=== PATIENT | female | born 1975 | race Caucasian/White ===

== ENCOUNTER 2017-12-27 22:15 | Emergency (ER) | payer MEDICAID ==
[~2017-12-27] VITALS: Ht 162.6 cm; Wt 110.0 kg
[~2017-12-27 22:15] MED LIST: BUPR150T8 PO; ESCI20TA29 PO; HYDR12.522 PO; TRAZ300T11 PO
[2017-12-27 22:47] LABS: BASOPHILS % (AUTO) 0.3 % (0-1); EOSINOPHILS # (AUTO) 0.5 X10'3 (0-0.9); EOSINOPHILS % (AUTO) 4.5 % (0-6); HEMATOCRIT 34.6 % (35.0-45.0); HEMOGLOBIN 11.6 g/dl (12.0-16.0); LYMPHOCYTES # (AUTO) 2.5 X10'3 (1.1-4.8); LYMPHOCYTES % (AUTO) 23.7 % (21-51); MEAN CORPUSCULAR HEMOGLOBIN 27.7 PG (27.0-31.0); MEAN CORPUSCULAR HGB CONC 33.4 % (33.0-36.5); MEAN CORPUSCULAR VOLUME 82.9 FL (78-98); MONOCYTES # (AUTO) 0.7 X10'3 (0-0.9); MONOCYTES % (AUTO) 6.2 % (2-12); NEUTROPHILS # (AUTO) 6.9 X10'3 (1.8-7.7); NEUTROPHILS % (AUTO) 65.3 % (42-75); PLATELET COUNT 386 X10'3 (140-440); RED BLOOD COUNT 4.18 X10'6 (4.20-5.60); RED CELL DISTRIBUTION WIDTH 15.5 % (11.5-14.5); WHITE BLOOD COUNT 10.6 X10'3 (4.5-11.0)
[2017-12-27 23:01] LABS: ALANINE AMINOTRANSFERASE 32 U/L (12-78); ALBUMIN 3.8 G/DL (3.4-5.0); ALKALINE PHOSPHATASE 74 IU/L (46-116); AMYLASE 49 U/L (25-115); ANION GAP 11 (8-16); ASPARTATE AMINO TRANSFERASE 17 U/L (10-37); BILIRUBIN,TOTAL 0.2 MG/DL (0.1-1.0); BLOOD UREA NITROGEN 11 MG/DL (7-18); BUN/CREATININE RATIO 13.1 (6.6-38.0); CHLORIDE 102 MMOL/L (99-107); CREATININE 0.84 MG/DL (0.40-0.90); GLUCOSE 89 MG/DL (70-104); LIPASE 265 U/L (73-393); POTASSIUM 3.5 MMOL/L (3.5-5.1); SODIUM 141 MMOL/L (135-145); TOTAL CARBON DIOXIDE 27.7 MMOL/L (24-32); TOTAL PROTEIN 7.5 G/DL (6.4-8.2); eGFR 74 ML/MIN
[2017-12-27] MEDS ORDERED: DICY10CA88 PO (23:38)
[2017-12-27] MEDS ORDERED: dicyclomine 10 MG capsule PO ONE (23:40)
[2017-12-27 23:43] VITALS: BP 107/61
[2017-12-27 23:49] LABS: CLARITY,URINE CLEAR (Clear); COLOR,URINE STRAW (Yellow); GLUCOSE, URINE NEGATIVE (Neg); KETONES,URINE NEGATIVE (Neg); LEUKOCYTE ESTERASE ,URINE NEGATIVE (Neg); NITRITES, URINE NEGATIVE (Neg); OCCULT BLOOD,URINE LARGE (Neg); PROTEIN,URINE NEGATIVE (Neg); UROBILINOGEN,URINE 0.2 E.U/dL (0.2-1.0)
[2017-12-27 23:50] LABS: UA COLLECTION TYPE CLN CATCH MIDSTREAM
[2017-12-27 23:58] LABS: BACTERIA,URINE FEW /HPF (Neg); MUCUS STRANDS NONE SEEN /LPF (Neg); RBC,URINE 0-2 /HPF (0-2); SQUAMOUS EPITHELIAL CELL,UR FEW /LPF (FEW); WBC,URINE 0-4 /HPF (0-4)
== END 2017-12-27 23:50 | disposition home or self-care (01) ==
LOC: ER 22:16
DX: B34.9 Viral infection, unspecified (principal); R10.11 Right upper quadrant pain; F17.200 Nicotine dependence, unspecified, uncomplicated; E11.9 Type 2 diabetes mellitus without complications; Z88.5 Allergy status to narcotic agent; Z79.899 Other long term (current) drug therapy
CPT/HCPCS: 36415; 80053; 81001; 82150; 83690; 85025; 85610; 99284

== ENCOUNTER 2018-07-02 19:25 | Emergency (ER) | payer MEDICAID ==
[~2018-07-02] VITALS: Ht 162.6 cm; Wt 130.0 kg
[~2018-07-02 19:25] MED LIST changes: +DICY10CA88 PO
[2018-07-02 20:00] LABS: CLARITY,URINE CLEAR (Clear); COLOR,URINE YELLOW (Yellow); GLUCOSE, URINE NEGATIVE (Neg); KETONES,URINE NEGATIVE (Neg); LEUKOCYTE ESTERASE ,URINE SMALL (Neg); NITRITES, URINE NEGATIVE (Neg); OCCULT BLOOD,URINE SMALL (Neg); PROTEIN,URINE NEGATIVE (Neg); UROBILINOGEN,URINE 0.2 E.U/dL (0.2-1.0)
[2018-07-02 20:02] LABS: URINE HCG NEGATIVE (NEG)
[2018-07-02 20:05] LABS: UA COLLECTION TYPE CLN CATCH MIDSTREAM
[2018-07-02 20:12] LABS: ALANINE AMINOTRANSFERASE 20 U/L (12-78); ALBUMIN 3.3 G/DL (3.4-5.0); ALBUMIN/GLOBULIN RATIO 0.8 (1.1-1.5); ALKALINE PHOSPHATASE 90 IU/L (46-116); ANION GAP 10 (8-16); ASPARTATE AMINO TRANSFERASE 10 U/L (10-37); BILIRUBIN,TOTAL 0.2 MG/DL (0.1-1.0); BLOOD UREA NITROGEN 11 MG/DL (7-18); BUN/CREATININE RATIO 14.1 (6.6-38.0); CALCIUM 8.2 MG/DL (8.5-10.1); CHLORIDE 100 MMOL/L (99-107); CREATININE 0.78 MG/DL (0.40-0.90); GLUCOSE 113 MG/DL (70-104); POTASSIUM 3.7 MMOL/L (3.5-5.1); SODIUM 138 MMOL/L (135-145); TOTAL CARBON DIOXIDE 28.3 MMOL/L (24-32); TOTAL PROTEIN 7.5 G/DL (6.4-8.2); eGFR 80 ML/MIN
[2018-07-02 20:15] LABS: PROTHROMBIN TIME 9.9 SECONDS (9.0-12.0)
[2018-07-02 20:18] LABS: BASOPHILS # (AUTO) 0.1 X10'3 (0-0.2); BASOPHILS % (AUTO) 0.5 % (0-1); EOSINOPHILS # (AUTO) 0.4 X10'3 (0-0.9); EOSINOPHILS % (AUTO) 3.5 % (0-6); HEMATOCRIT 34.9 % (35.0-45.0); HEMOGLOBIN 11.6 g/dl (12.0-16.0); LYMPHOCYTES # (AUTO) 2.3 X10'3 (1.1-4.8); LYMPHOCYTES % (AUTO) 18.5 % (21-51); MEAN CORPUSCULAR HEMOGLOBIN 27.6 PG (27.0-31.0); MEAN CORPUSCULAR HGB CONC 33.3 % (33.0-36.5); MEAN CORPUSCULAR VOLUME 82.7 FL (78-98); MEAN PLATELET VOLUME 7.8 FL (7.4-10.4); MONOCYTES # (AUTO) 0.7 X10'3 (0-0.9); MONOCYTES % (AUTO) 5.6 % (2-12); NEUTROPHILS # (AUTO) 8.9 X10'3 (1.8-7.7); NEUTROPHILS % (AUTO) 71.9 % (42-75); PLATELET COUNT 458 X10'3 (140-440); RED BLOOD COUNT 4.22 X10'6 (4.20-5.60); RED CELL DISTRIBUTION WIDTH 14.1 % (11.5-14.5); WHITE BLOOD COUNT 12.4 X10'3 (4.5-11.0)
[2018-07-02] MEDS ORDERED: iohexol 300mg/ml 100ml inj. ONE (20:33)
[2018-07-02 20:43] LABS: SQUAMOUS EPITHELIAL CELL,UR FEW /LPF (FEW)
[2018-07-02 20:44] LABS: BACTERIA,URINE 1+ /HPF (Neg); RBC,URINE 0-2 /HPF (0-2); WBC,URINE 0-4 /HPF (0-4)
[2018-07-02] MEDS ORDERED: MESSAGE TO NURSING PO NR (20:50)
[2018-07-02] MEDS ORDERED: morphine 4 MG/ML inj SYRINge IV PRN (21:00)
[2018-07-02] MEDS ORDERED: normal saline 1000ML IV soln IVB ONE (21:00)
[2018-07-02] MEDS ORDERED: ondansetron/PF 4mg/2ml inj IV ONE (21:00)
[2018-07-02] MEDS ORDERED: ONDA4TAB9 PO (22:33)
[2018-07-02] MEDS ORDERED: HYDR-4353 PO (22:33)
[2018-07-02 22:43] VITALS: BP 137/88
== END 2018-07-02 22:44 | disposition home or self-care (01) ==
LOC: ER 19:26
DX: N83.291 Other ovarian cyst, right side (principal); R91.1 Solitary pulmonary nodule; R14.0 Abdominal distension (gaseous); R10.32 Left lower quadrant pain; R10.31 Right lower quadrant pain; E11.9 Type 2 diabetes mellitus without complications; Z90.710 Acquired absence of both cervix and uterus; Z98.890 Other specified postprocedural states; Z88.5 Allergy status to narcotic agent; Z79.899 Other long term (current) drug therapy
CPT/HCPCS: 36415; 74177; 80053; 81001; 81025; 82948; 85025; 85610; 87088; 96361; 96374; 96375; 99285; J2270; J2405; Q9967

== ENCOUNTER 2018-08-05 20:57 | Emergency (ER) | payer MEDICAID ==
[~2018-08-05] VITALS: Ht 162.6 cm; Wt 133.5 kg
[2018-08-05 21:07] VITALS: BP 181/99
== END 2018-08-06 01:39 | disposition left against medical advice (07) ==
LOC: ER 20:57
DX: M54.9 Dorsalgia, unspecified (principal); Z53.21 Procedure and treatment not carried out due to patient leaving prior to being seen by health care provider

== ENCOUNTER 2018-08-17 19:28 | Emergency (ER) | payer MEDICAID ==
[~2018-08-17] VITALS: Ht 162.6 cm; Wt 133.0 kg
[2018-08-17 19:50] VITALS: BP 166/82
[2018-08-17] MEDS ORDERED: HYDROcodone/acetaminophen 10/325mg tab PO ONE (22:20)
[2018-08-17] MEDS ORDERED: diazepam 5mg tablet PO ONE (22:20)
[2018-08-17] MEDS ORDERED: ketorolac trometh inj. 60 MG/2 ML VIAL IM ONE (22:20)
== END 2018-08-17 22:46 | disposition home or self-care (01) ==
LOC: ER 19:28
DX: G89.29 Other chronic pain (principal); M54.42 Lumbago with sciatica, left side; E11.9 Type 2 diabetes mellitus without complications; Z90.710 Acquired absence of both cervix and uterus; Z79.899 Other long term (current) drug therapy
CPT/HCPCS: 96372; 99283; J1885

== ENCOUNTER 2018-10-08 12:22 | Emergency (ER) | payer MEDICAID ==
[~2018-10-08] VITALS: Ht 162.6 cm; Wt 132.0 kg
[2018-10-08 12:35] VITALS: BP 174/98
[2018-10-09] MEDS ORDERED: TRAM50TA2 PO (02:56)
== END 2018-10-08 14:37 | disposition left against medical advice (07) ==
LOC: ER 12:22
DX: M54.5 Low back pain (principal); Z53.21 Procedure and treatment not carried out due to patient leaving prior to being seen by health care provider; W07.XXXA Fall from chair, initial encounter; Y93.89 Activity, other specified; Y92.69 Other specified industrial and construction area as the place of occurrence of the external cause; Y99.9 Unspecified external cause status
CPT/HCPCS: 82948; 99281

== ENCOUNTER 2018-10-09 02:29 | Emergency (ER) | payer MEDICAID, OTHER ==
[~2018-10-09] VITALS: Ht 162.6 cm; Wt 126.0 kg
[2018-10-09 02:37] VITALS: BP 153/75
[2018-10-09] MEDS ORDERED: HYDROcodone/acetaminophen 5mg/325mg tablet PO ONE (02:55)
[2018-10-09] MEDS ORDERED: ketorolac trometh inj. 60 MG/2 ML VIAL IM ONE (02:55)
[2018-10-09] MEDS ORDERED: TRAM50TA2 PO (02:56)
== END 2018-10-09 03:31 | disposition home or self-care (01) ==
LOC: ER 02:30
DX: G89.29 Other chronic pain (principal); M54.5 Low back pain; E11.9 Type 2 diabetes mellitus without complications; Z90.710 Acquired absence of both cervix and uterus; Z79.899 Other long term (current) drug therapy
CPT/HCPCS: 96372; 99284; J1885

== ENCOUNTER 2019-03-31 14:34 | Emergency (ER) | payer MEDICAID, OTHER ==
[~2019-03-31] VITALS: Ht 162.6 cm; Wt 120.0 kg
[2019-03-31 15:26] VITALS: BP 128/86
== END 2019-03-31 16:21 | disposition home or self-care (01) ==
LOC: ER 14:35
DX: G89.18 Other acute postprocedural pain (principal); E11.9 Type 2 diabetes mellitus without complications; G89.29 Other chronic pain; F41.9 Anxiety disorder, unspecified; F32.9 Major depressive disorder, single episode, unspecified; F10.99 Alcohol use, unspecified with unspecified alcohol-induced disorder; Z86.2 Personal history of diseases of the blood and blood-forming organs and certain disorders involving the immune mechanism; Z90.710 Acquired absence of both cervix and uterus; Z98.890 Other specified postprocedural states; Z79.899 Other long term (current) drug therapy; Y90.9 Presence of alcohol in blood, level not specified
CPT/HCPCS: 99281

== ENCOUNTER 2019-04-15 16:59 | Emergency (ER) | payer MEDICAID ==
[~2019-04-15] VITALS: Ht 162.6 cm; Wt 120.5 kg
[2019-04-15 17:03] VITALS: BP 175/103
[2019-04-15] MEDS ORDERED: DICL100G15 TOP (17:51)
[2019-04-15] MEDS ORDERED: orphenadrine citrate 60mg/2ml inj. IM ONE (17:55)
[2019-04-15] MEDS ORDERED: ketorolac tromethamine 15mg/ml inj. IM ONE (17:55)
== END 2019-04-15 18:32 | disposition home or self-care (01) ==
LOC: ER 17:00
DX: M25.532 Pain in left wrist (principal); E11.9 Type 2 diabetes mellitus without complications; G89.29 Other chronic pain; F41.9 Anxiety disorder, unspecified; F32.9 Major depressive disorder, single episode, unspecified; Z90.710 Acquired absence of both cervix and uterus; Z98.890 Other specified postprocedural states; Z87.891 Personal history of nicotine dependence; Z88.5 Allergy status to narcotic agent; Z79.899 Other long term (current) drug therapy
CPT/HCPCS: 29125; 73130; 99283

== ENCOUNTER 2020-01-05 22:10 | Emergency (ER) | payer MEDICAID ==
[~2020-01-05] VITALS: Ht 162.6 cm; Wt 100.3 kg
[~2020-01-05 22:10] MED LIST changes: +DICL100G15 TOP
[2020-01-05 22:48] LABS: BASOPHILS # (AUTO) 0.1 X10'3 (0-0.2); BASOPHILS % (AUTO) 0.9 % (0-1); EOSINOPHILS # (AUTO) 0.2 X10'3 (0-0.9); EOSINOPHILS % (AUTO) 1.4 % (0-6); HEMATOCRIT 39.8 % (35.0-45.0); HEMOGLOBIN 13.5 g/dl (12.0-16.0); LYMPHOCYTES # (AUTO) 3.5 X10'3 (1.1-4.8); LYMPHOCYTES % (AUTO) 28.8 % (21-51); MEAN CORPUSCULAR HEMOGLOBIN 30.7 PG (27.0-31.0); MEAN CORPUSCULAR HGB CONC 33.8 g/dL (33.0-36.5); MEAN CORPUSCULAR VOLUME 90.9 FL (78-98); MEAN PLATELET VOLUME 8.7 FL (7.4-10.4); MONOCYTES # (AUTO) 0.7 X10'3 (0-0.9); NEUTROPHILS # (AUTO) 7.5 X10'3 (1.8-7.7); NEUTROPHILS % (AUTO) 62.9 % (42-75); PLATELET COUNT 291 X10'3 (140-440); RED BLOOD COUNT 4.38 X10'6 (4.20-5.60)
[2020-01-05 22:51] LABS: URINE HCG NEGATIVE (NEG)
[2020-01-05 22:55] LABS: CLARITY,URINE SLIGHTLY CLOUDY (Clear); COLOR,URINE YELLOW (Yellow); GLUCOSE, URINE NEGATIVE (Neg); KETONES,URINE TRACE mg/dl (Neg); LEUKOCYTE ESTERASE ,URINE NEGATIVE (Neg); NITRITES, URINE NEGATIVE (Neg); OCCULT BLOOD,URINE NEGATIVE (Neg); PROTEIN,URINE NEGATIVE (Neg)
[2020-01-05 22:59] LABS: ALANINE AMINOTRANSFERASE 12 U/L (12-78); ALBUMIN 3.9 G/DL (3.4-5.0); ALBUMIN/GLOBULIN RATIO 1.1 (1.1-1.5); ALKALINE PHOSPHATASE 51 IU/L (46-116); ANION GAP 9 (8-16); ASPARTATE AMINO TRANSFERASE 9 U/L (10-37); BILIRUBIN,TOTAL 0.3 MG/DL (0.1-1.0); BLOOD UREA NITROGEN 23 MG/DL (7-18); BUN/CREATININE RATIO 27.4 (6.6-38.0); CALCIUM 8.6 MG/DL (8.5-10.1); CHLORIDE 102 MMOL/L (99-107); CREATININE 0.84 MG/DL (0.40-0.90); GLUCOSE 133 MG/DL (70-104); LIPASE 255 U/L (73-393); POTASSIUM 3.4 MMOL/L (3.5-5.1); SODIUM 139 MMOL/L (135-145); TOTAL PROTEIN 7.5 G/DL (6.4-8.2); eGFR 73 ML/MIN
[2020-01-05 23:00] LABS: UA COLLECTION TYPE CLN CATCH MIDSTREAM
[2020-01-05] MEDS ORDERED: morphine 4 MG/ML inj SYRINge IV PRN ×2 (23:00→23:20)
[2020-01-05] MEDS ORDERED: ondansetron/PF 4mg/2ml inj IV ONE ×2 (23:00→23:20)
[2020-01-05] MEDS ORDERED: normal saline 1000ML IV soln IVB ONE ×2 (23:00→23:20)
[2020-01-05] MEDS ORDERED: ketorolac tromethamine 15mg/ml inj. IV ONE ×2 (23:00→23:20)
[2020-01-05] MEDS ORDERED: HYDROcodone/acetaminophen 10/325mg tab PO ONE (23:00)
[2020-01-05 23:02] LABS: BACTERIA,URINE NONE SEEN /HPF (Neg); RBC,URINE 0-2 /HPF (0-2); SQUAMOUS EPITHELIAL CELL,UR MODERATE /LPF (FEW); WBC,URINE 0-4 /HPF (0-4)
[2020-01-05] MEDS ORDERED: HYDR-4353 PO (23:18)
[2020-01-05] MEDS ORDERED: ketorolac trometh. 30mg/ml inj. IM ONE (23:35)
--- NOTE | 2020-01-05 23:45 | NUR ---
PT NOT WANTING AN IV OR IV MEDS OR FLUIDS DR KELLER DISCONTINUED IV MED AND IVF FLUIDS PT WAS MEDICATED FOR PAIN WITH PO MEDS AND AND IIM TORADOL
[2020-01-06 00:19] VITALS: BP 108/56
== END 2020-01-06 00:11 | disposition home or self-care (01) ==
LOC: ER 22:43
DX: R10.31 Right lower quadrant pain (principal); G89.29 Other chronic pain; F41.9 Anxiety disorder, unspecified; F32.9 Major depressive disorder, single episode, unspecified; F17.200 Nicotine dependence, unspecified, uncomplicated; Z86.2 Personal history of diseases of the blood and blood-forming organs and certain disorders involving the immune mechanism; Z90.710 Acquired absence of both cervix and uterus; Z98.890 Other specified postprocedural states; Z72.89 Other problems related to lifestyle; Z90.721 Acquired absence of ovaries, unilateral
CPT/HCPCS: 36415; 80053; 81001; 81025; 83690; 85025; 96372; 99283; J1885

== ENCOUNTER 2020-09-29 08:54 | Emergency (ER) | payer MEDICAID ==
[~2020-09-29] VITALS: Ht 162.6 cm; Wt 105.0 kg
[2020-09-29] MEDS ORDERED: morphine 4 MG/ML inj SYRINge IV ONE (09:40)
[2020-09-29] MEDS ORDERED: ondansetron/PF 4mg/2ml inj IV ONE (09:40)
[2020-09-29] MEDS ORDERED: iohexol 300mg/ml 100ml inj. ONE (09:55)
[2020-09-29] MEDS ORDERED: HYDR-3965 PO (10:57)
[2020-09-29] MEDS ORDERED: ONDA4TAB6 PO (10:57)
[2020-09-29 11:44] VITALS: BP 144/77
== END 2020-09-29 11:47 | disposition home or self-care (01) ==
LOC: ER 08:54
DX: S22.31XA Fracture of one rib, right side, initial encounter for closed fracture (principal); R07.81 Pleurodynia; R06.02 Shortness of breath; R10.11 Right upper quadrant pain; E11.9 Type 2 diabetes mellitus without complications; G89.29 Other chronic pain; F41.9 Anxiety disorder, unspecified; F32.9 Major depressive disorder, single episode, unspecified; Z86.2 Personal history of diseases of the blood and blood-forming organs and certain disorders involving the immune mechanism; Z90.710 Acquired absence of both cervix and uterus; Z98.890 Other specified postprocedural states; Z72.89 Other problems related to lifestyle; Z88.5 Allergy status to narcotic agent; Z79.899 Other long term (current) drug therapy; W19.XXXA Unspecified fall, initial encounter; Y93.89 Activity, other specified; Y92.89 Other specified places as the place of occurrence of the external cause; Y99.8 Other external cause status
CPT/HCPCS: 71260; 74177; 96374; 96375; 99285; J2270; J2405; Q9967

== ENCOUNTER 2022-10-21 20:45 | Emergency (ER) | payer MEDICAID ==
[~2022-10-21] VITALS: Ht 162.6 cm; Wt 109.1 kg
[~2022-10-21 20:45] MED LIST changes: +ONDA4TAB6 PO
[2022-10-21 21:03] LABS: BASOPHILS # (AUTO) 0.1 X10'3 (0-0.2); EOSINOPHILS # (AUTO) 0.2 X10'3 (0-0.9); EOSINOPHILS % (AUTO) 2.5 % (0-6); HEMATOCRIT 42.2 % (35.0-45.0); LYMPHOCYTES % (AUTO) 36.5 % (21-51); MEAN CORPUSCULAR HEMOGLOBIN 30.2 PG (27.0-31.0); MEAN CORPUSCULAR HGB CONC 33.3 g/dL (33.0-36.5); MEAN CORPUSCULAR VOLUME 90.8 FL (78-98); MEAN PLATELET VOLUME 8.2 FL (7.4-10.4); MONOCYTES # (AUTO) 0.6 X10'3 (0-0.9); MONOCYTES % (AUTO) 7.8 % (2-12); NEUTROPHILS # (AUTO) 4.3 X10'3 (1.8-7.7); NEUTROPHILS % (AUTO) 52.2 % (42-75); PLATELET COUNT 292 X10'3 (140-440); RED BLOOD COUNT 4.64 X10'6 (4.20-5.60); RED CELL DISTRIBUTION WIDTH 14.2 % (11.5-14.5); WHITE BLOOD COUNT 8.2 X10'3 (4.5-11.0)
[2022-10-21 21:33] LABS: ALANINE AMINOTRANSFERASE 20 U/L (12-78); ALBUMIN 4.2 G/DL (3.4-5.0); ALKALINE PHOSPHATASE 70 IU/L (46-116); ANION GAP 11 (8-16); ASPARTATE AMINO TRANSFERASE 15 U/L (10-37); BILIRUBIN,TOTAL 0.3 MG/DL (0.1-1.0); BLOOD UREA NITROGEN 13 MG/DL (7-18); BUN/CREATININE RATIO 16.9 (6.6-38.0); CALCIUM 9.5 MG/DL (8.5-10.1); CHLORIDE 102 MMOL/L (99-107); CREATININE 0.77 MG/DL (0.40-0.90); GLUCOSE 126 MG/DL (70-104); POTASSIUM 3.7 MMOL/L (3.5-5.1); SODIUM 140 MMOL/L (135-145); TOTAL CARBON DIOXIDE 27.2 MMOL/L (24-32); TOTAL PROTEIN 8.4 G/DL (6.4-8.2); eGFR 80 ML/MIN
[2022-10-21 21:41] LABS: MAGNESIUM 1.9 MG/DL (1.5-2.4)
[2022-10-21] MEDS ORDERED: LORazepam 2 mg/ml vial IM ONE (22:45)
[2022-10-21 23:38] VITALS: BP 160/99
== END 2022-10-21 23:41 | disposition home or self-care (01) ==
LOC: ER 20:46
DX: F15.10 Other stimulant abuse, uncomplicated (principal); G89.29 Other chronic pain; M54.50 Low back pain, unspecified; Z88.5 Allergy status to narcotic agent; Z90.710 Acquired absence of both cervix and uterus; Z98.890 Other specified postprocedural states
CPT/HCPCS: 36415; 71045; 80053; 83735; 83880; 84484; 85025; 93005; 96372; 99285; J2060

== ENCOUNTER 2023-01-21 11:53 | Inpatient (IN) | payer MEDICAID ==
[~2023-01-21] VITALS: Ht 162.6 cm; Wt 104.5 kg
[2023-01-21 12:17] LABS: BASOPHILS % (AUTO) 0.7 % (0-1); EOSINOPHILS # (AUTO) 0.1 X10'3 (0-0.9); EOSINOPHILS % (AUTO) 2.1 % (0-6); HEMATOCRIT 37.9 % (35.0-45.0); HEMOGLOBIN 12.6 g/dl (12.0-16.0); LYMPHOCYTES # (AUTO) 2.5 X10'3 (1.1-4.8); LYMPHOCYTES % (AUTO) 36.7 % (21-51); MEAN CORPUSCULAR HEMOGLOBIN 29.7 PG (27.0-31.0); MEAN CORPUSCULAR HGB CONC 33.3 g/dL (33.0-36.5); MEAN CORPUSCULAR VOLUME 89.2 FL (78-98); MEAN PLATELET VOLUME 8.1 FL (7.4-10.4); MONOCYTES # (AUTO) 0.4 X10'3 (0-0.9); MONOCYTES % (AUTO) 6.1 % (2-12); NEUTROPHILS # (AUTO) 3.8 X10'3 (1.8-7.7); NEUTROPHILS % (AUTO) 54.4 % (42-75); PLATELET COUNT 332 X10'3 (140-440); RED BLOOD COUNT 4.25 X10'6 (4.20-5.60); RED CELL DISTRIBUTION WIDTH 15.1 % (11.5-14.5); WHITE BLOOD COUNT 6.9 X10'3 (4.5-11.0)
[2023-01-21 12:32] LABS: ALANINE AMINOTRANSFERASE 31 U/L (12-78); ALBUMIN 3.7 G/DL (3.4-5.0); ALBUMIN/GLOBULIN RATIO 1.2 (1.1-1.5); ALKALINE PHOSPHATASE 61 IU/L (46-116); ANION GAP 11 (8-16); ASPARTATE AMINO TRANSFERASE 21 U/L (10-37); BILIRUBIN,TOTAL 0.2 MG/DL (0.1-1.0); BLOOD UREA NITROGEN 11 MG/DL (7-18); BUN/CREATININE RATIO 14.1 (10.0-20.0); CALCIUM 8.9 MG/DL (8.5-10.1); CHLORIDE 102 MMOL/L (99-107); CREATININE 0.78 MG/DL (0.40-0.90); GLUCOSE 113 MG/DL (70-104); POTASSIUM 4.3 MMOL/L (3.5-5.1); SODIUM 140 MMOL/L (135-145); TOTAL CARBON DIOXIDE 26.8 MMOL/L (24-32); TOTAL PROTEIN 6.9 G/DL (6.4-8.2); eGFR 79 ML/MIN
[2023-01-21 12:39] LABS: MAGNESIUM 1.9 MG/DL (1.5-2.4)
[2023-01-21] MEDS ORDERED: metoprolol tartrate 25mg tablet PO ONE (13:00)
[2023-01-21] MEDS ORDERED: aspirin 81mg tab.chew PO ONE (13:00)
[2023-01-21] MEDS ORDERED: potassium Cl 20 mEq SR tablet PO PRN ×2 (13:30)
[2023-01-21] MEDS ORDERED: acetaminophen 325mg tablet PO PRN (13:30)
[2023-01-21] MEDS ORDERED: metoprolol tartrate 1mg/ml inj IV PRN (13:30)
[2023-01-21] MEDS ORDERED: ondansetron/PF 4mg/2ml inj IV PRN (13:30)
[2023-01-21] MEDS ORDERED: potassium Cl 40MEQ/1/2NS 520ml 520 ML IV PRN (13:30)
[2023-01-21] MEDS ORDERED: aminophylline 250mg/10ml inj. IV PRN (13:30)
[2023-01-21] MEDS ORDERED: regadenoson 0.4mg/5ml syringe IV PRN (13:30)
[2023-01-21] MEDS ORDERED: HYDROcodone/acetaminophen 5mg/325mg tablet PO PRN (13:30)
[2023-01-21] MEDS ORDERED: morphine 2 MG/ML inj. syringe IV PRN (13:30)
[2023-01-21] MEDS ORDERED: magnesium 4gm in 100ml NS 100 ML IV PRN (13:30)
[2023-01-21] MEDS ORDERED: nitroGLYCERIN 0.4mg SUBLingual tab SL PRN (13:30)
[2023-01-21] MEDS ORDERED: magnesium Cl slow-release 64mg tablet PO PRN (13:30)
[2023-01-21] MEDS ORDERED: magnesium 2GM in 50ml NS 50 ML IV PRN (13:30)
[2023-01-21] MEDS ORDERED: magnesium hydroxide 30ml (MOM) UD suspension PO PRN (13:30)
[2023-01-21] MEDS ORDERED: hydrALAZINE 20mg/ml inj. IV PRN (13:30)
[2023-01-21] MEDS ORDERED: mag hydrox/Alum hydrox/simeth 30ml oral suspension PO PRN (13:30)
[2023-01-21] MEDS ORDERED: DEXTROSE 15 GM of carb/4 tabs (each vial/BOTTLE has 4 tablets) PO PRN ×2 (13:45)
[2023-01-21] MEDS ORDERED: insulin Lispro (HumaLOG) vial - multi-dose SQ SCH (13:45)
[2023-01-21] MEDS ORDERED: glucagon, human recombinant 1mg kit SUBCUT PRN (13:45)
[2023-01-21] MEDS ORDERED: dextrose 50%-water 50ml dispensing syringe IV PRN ×2 (13:45)
[2023-01-21] MEDS ORDERED: MESSAGE TO PHARMACY PO ONE (13:45)
[2023-01-21] MEDS ORDERED: dicyclomine 10 MG capsule PO PRN (13:55)
[2023-01-21 13:58] LABS: MAGNESIUM 1.9 MG/DL (1.5-2.4); POTASSIUM 4.4 MMOL/L (3.5-5.1)
[2023-01-21 14:43] LABS: CHOL/HDL RATIO 2.7 (0.00-4.99); CHOLESTEROL 150 MG/DL (0-200); HDL CHOLESTEROL 55 MG/DL (35-60); LDL CHOLESTEROL 74 MG/DL (50-100); TRIGLYCERIDES 192 MG/DL (20-135)
[2023-01-21] MEDS: LORazepam 0.5 MG tablet PO PRN ×2 (15:20→21:21)
[2023-01-21] MEDS ORDERED: LISI20TA28 PO (16:07)
[2023-01-21] MEDS ORDERED: FLUT16SP26 (16:07)
[2023-01-21] MEDS ORDERED: PARO20TA6 PO (16:07)
[2023-01-21] MEDS ORDERED: CLON0.1T2 PO (16:07)
[2023-01-21] MEDS ORDERED: LORA10TA7 PO (16:07)
[2023-01-21] MEDS ORDERED: ATOR20TA66 PO (16:07)
[2023-01-21] MEDS ORDERED: DIVA500T9 PO (16:07)
[2023-01-21] MEDS ORDERED: METF-1203 PO (16:07)
[2023-01-21] MEDS ORDERED: ACET-1084 PO (16:09)
[2023-01-21] MEDS ORDERED: MULT-227 PO (16:09)
--- NOTE | 2023-01-21 17:42 | NUR ---
RN gave nurse report to SOLEDAD Jaimes. Pt stable. VS WNL. 20 gauge IV inserted in left wrist. Pt transferred to [address].
--- NOTE | 2023-01-21 17:50 | NUR ---
Pt arrived from ER via wheelchair. Pt alert/oriented x4. Resting comfortably in bed, at bedside.
[2023-01-21 18:00] VITALS: BP 169/94
--- NOTE | 2023-01-21 18:32 | NUR ---
Report given to Sandie. Reviewed patient plan of care, all questions answered.
[2023-01-21 19:00] VITALS: BP 163/92
[2023-01-21] MEDS: K and/or MAG REPLACEMENT MC SCH (20:00)
[2023-01-21] MEDS ORDERED: traZODone 150mg tablet PO SCH (20:00)
[2023-01-21] MEDS ORDERED: insulin glargine (Lantus) pen - multi-dose SQ SCH (21:00)
[2023-01-21] MEDS: docusate sod 100mg capsule PO SCH (21:00)
[2023-01-21] MEDS ORDERED: non-formulary drug (Acetaminophen 1 TAB) PO PRN (22:20)
[2023-01-21 23:00] VITALS: BP 130/90
[2023-01-22] VITALS (11 sets, daily range): BP systolic 119–164; BP diastolic 63–104
--- NOTE | 2023-01-22 02:07 | NUR ---
Pt was admitted to floor on prior shift. Pt appears stable, A/O. No c/o pain. Pt eating food brought in by family. Pt given one dose of Ativan at approx 0930, medications had not been reconciled at that time, psych med not ordered for HS and pt stated her mind was racing. BS has not met protocol this shift. Pt is currently NPO for lexiscan on 01/22. Page sent to MD to reconcile meds, completed. Pt is resting comfortably at this time.
--- NOTE | 2023-01-22 02:21 | NUR ---
I AGREE WITH BULK INTAKE WORKER ASSESSMENTS
[2023-01-22] MEDS: LORazepam 0.5 MG tablet PO PRN (03:57)
--- NOTE | 2023-01-22 06:30 | NUR ---
Patient in room PCU 3015. I have received report from Sandie RN and had the opportunity to ask questions and assume patient care.
[2023-01-22 07:31] LABS: BASOPHILS # (AUTO) 0.1 X10'3 (0-0.2); BASOPHILS % (AUTO) 0.8 % (0-1); EOSINOPHILS # (AUTO) 0.2 X10'3 (0-0.9); EOSINOPHILS % (AUTO) 2.7 % (0-6); HEMATOCRIT 36.1 % (35.0-45.0); HEMOGLOBIN 12.1 g/dl (12.0-16.0); LYMPHOCYTES # (AUTO) 2.5 X10'3 (1.1-4.8); LYMPHOCYTES % (AUTO) 36.4 % (21-51); MEAN CORPUSCULAR HEMOGLOBIN 29.9 PG (27.0-31.0); MEAN CORPUSCULAR HGB CONC 33.6 g/dL (33.0-36.5); MEAN PLATELET VOLUME 8.4 FL (7.4-10.4); MONOCYTES # (AUTO) 0.4 X10'3 (0-0.9); MONOCYTES % (AUTO) 6.1 % (2-12); NEUTROPHILS # (AUTO) 3.7 X10'3 (1.8-7.7); PLATELET COUNT 318 X10'3 (140-440); RED BLOOD COUNT 4.05 X10'6 (4.20-5.60); RED CELL DISTRIBUTION WIDTH 14.8 % (11.5-14.5); WHITE BLOOD COUNT 6.8 X10'3 (4.5-11.0)
[2023-01-22 07:57] LABS: ALANINE AMINOTRANSFERASE 28 U/L (12-78); ALBUMIN 3.3 G/DL (3.4-5.0); ALBUMIN/GLOBULIN RATIO 1.1 (1.1-1.5); ALKALINE PHOSPHATASE 57 IU/L (46-116); ANION GAP 8 (8-16); ASPARTATE AMINO TRANSFERASE 18 U/L (10-37); BILIRUBIN,TOTAL 0.4 MG/DL (0.1-1.0); BLOOD UREA NITROGEN 15 MG/DL (7-18); BUN/CREATININE RATIO 19.5 (10.0-20.0); CALCIUM 8.9 MG/DL (8.5-10.1); CHLORIDE 105 MMOL/L (99-107); CHOLESTEROL 137 MG/DL (0-200); CREATININE 0.77 MG/DL (0.40-0.90); GLUCOSE 105 MG/DL (70-104); HDL CHOLESTEROL 45 MG/DL (35-60); LDL CHOLESTEROL 66 MG/DL (50-100); POTASSIUM 4.1 MMOL/L (3.5-5.1); SODIUM 141 MMOL/L (135-145); TOTAL CARBON DIOXIDE 28.2 MMOL/L (24-32); TOTAL PROTEIN 6.2 G/DL (6.4-8.2); TRIGLYCERIDES 211 MG/DL (20-135); eGFR 80 ML/MIN
[2023-01-22] MEDS ORDERED: loratadine 10mg tablet PO SCH (08:00)
[2023-01-22] MEDS ORDERED: atorvastatin 20mg tablet PO SCH (08:00)
[2023-01-22] MEDS ORDERED: enoxaparin 40mg/0.4ml syringe SUBCUT SCH (08:00)
[2023-01-22] MEDS ORDERED: lisinopril 20mg tablet PO SCH (08:00)
[2023-01-22] MEDS ORDERED: ESCITALOPRAM OXALATE 5 MG TABLET PO SCH (08:00)
[2023-01-22] MEDS ORDERED: PARoxetine 20mg tablet PO SCH (08:00)
[2023-01-22] MEDS ORDERED: HYDROchlorothiazide 25mg tablet PO ONE (08:00)
[2023-01-22] MEDS ORDERED: divalproex sod 250mg ER (24-hour) tablet PO SCH (08:00)
[2023-01-22] MEDS ORDERED: metoprolol succinate 25mg (24-HOUR) SR. Tablet PO SCH (08:00)
[2023-01-22] MEDS ORDERED: multivitamins, therapeutics tablet PO SCH (08:00)
[2023-01-22] MEDS ORDERED: buPROPion SR 150mg tablet PO SCH (08:00)
[2023-01-22] MEDS: docusate sod 100mg capsule PO SCH (10:12)
[2023-01-22] MEDS: K and/or MAG REPLACEMENT MC SCH (10:15)
--- NOTE | 2023-01-22 10:35 | NUR ---
PAGER ID: [phone] MESSAGE: [id number]- Carel Silvia: Pt refused scheduled lexapro and buspar, stated she doesn't take them anymore. Can we d/c? Bryan Humphries [phone]
[2023-01-22] MEDS ORDERED: METO-395 PO (10:46)
[2023-01-22] MEDS ORDERED: ASPI81TA52 PO (10:46)
--- NOTE | 2023-01-22 13:35 | NUR ---
Mrs. Curiel D/c'd Home Approx 1335, Pt. D/c'd in a stable condition, All Vital Signs stable at that time, Pt.s belongings sent with her along with D/c instructions Per MD orders. Pt. Educated on New Medications and verbalized understanding, New Medication Orders sent to [facility] off [address] Per Pt. Request. Pt. Also Educated on the importance of abstaining from drug use. Educational Materials sent with Pt. Patient instructed to follow up x 1 week with PCP. Pt. Assisted down to Lobby vis W/C By this COAL HAULER OPERATOR, PT. Present, this COAL HAULER OPERATOR assisted Pt. Into vehicle Pt. left in stable condition.
[2023-01-22] MEDS ORDERED: cloNIDine 0.1 mg tablet PO SCH (21:00)
== END 2023-01-22 13:28 | disposition home or self-care (01) | DRG 198 ==
LOC: ER 11:54 → ED HOLD 13:35 → PCU 3S 17:40
PROVIDERS: ADMIT Internal Medicine; ATTEND Internal Medicine
PROC: 4A02XM4 Measurement of Cardiac Total Activity, External Approach (ICD-10-PCS; principal; 2023-01-22)
PROC: 3E073KZ Introduction of Other Diagnostic Substance into Coronary Artery, Percutaneous Approach (ICD-10-PCS; 2023-01-22)
DX: R07.89 Other chest pain (principal); I24.8 Other forms of acute ischemic heart disease; E11.9 Type 2 diabetes mellitus without complications; E66.01 Morbid (severe) obesity due to excess calories; F32.A Depression, unspecified; F41.9 Anxiety disorder, unspecified; G89.29 Other chronic pain; M54.9 Dorsalgia, unspecified; M54.6 Pain in thoracic spine; E78.5 Hyperlipidemia, unspecified; F15.10 Other stimulant abuse, uncomplicated; F10.20 Alcohol dependence, uncomplicated; F19.20 Other psychoactive substance dependence, uncomplicated; F17.210 Nicotine dependence, cigarettes, uncomplicated; I10 Essential (primary) hypertension; I16.0 Hypertensive urgency; Z82.49 Family history of ischemic heart disease and other diseases of the circulatory system; Z90.711 Acquired absence of uterus with remaining cervical stump; Z90.721 Acquired absence of ovaries, unilateral; Z98.891 History of uterine scar from previous surgery; Z88.5 Allergy status to narcotic agent; Z68.39 Body mass index [BMI] 39.0-39.9, adult; Z79.899 Other long term (current) drug therapy
CPT/HCPCS: 36415; 71045; 78452; 80053; 80061; 82948; 83036; 83735; 83880; 84132; 84484; 85025; 87081; 93017; 93306; 99285; A9500; G0378; J1650; J1815; J2785

== ENCOUNTER 2023-04-01 21:36 | Emergency (ER) | payer MEDICAID ==
[~2023-04-01] VITALS: Ht 162.6 cm; Wt 103.6 kg
[~2023-04-01 21:36] MED LIST changes: +ACET-1084 PO; +ASPI81TA52 PO; +ATOR20TA66 PO; -BUPR150T8 PO; -DICL100G15 TOP; -DICY10CA88 PO; +DIVA500T9 PO; -ESCI20TA29 PO; +FLUT16SP26; -HYDR12.522 PO; +LISI20TA28 PO; +LORA10TA7 PO; +METF-1203 PO; +METO-395 PO; +MULT-227 PO; -ONDA4TAB6 PO; +PARO20TA6 PO; -TRAZ300T11 PO
[2023-04-01 21:51] VITALS: TEMP 98.6
[2023-04-01 22:38] LABS: URINE HCG NEGATIVE (NEG)
[2023-04-01 22:39] LABS: BILIRUBIN,URINE NEGATIVE (Neg); CLARITY,URINE SLIGHTLY CLOUDY (Clear); COLOR,URINE YELLOW (Yellow); GLUCOSE, URINE NEGATIVE (Neg); KETONES,URINE TRACE mg/dl (Neg); LEUKOCYTE ESTERASE ,URINE NEGATIVE (Neg); NITRITES, URINE NEGATIVE (Neg); OCCULT BLOOD,URINE NEGATIVE (Neg); PROTEIN,URINE TRACE mg/dl (Neg); UROBILINOGEN,URINE 0.2 E.U/dL (0.2-1.0)
[2023-04-01 22:44] LABS: UA COLLECTION TYPE CLN CATCH MIDSTREAM
[2023-04-01 22:48] LABS: MUCUS STRANDS FEW /LPF (Neg); SQUAMOUS EPITHELIAL CELL,UR FEW /LPF (FEW)
[2023-04-01 22:49] LABS: HYALINE CASTS 0-3 /LPF (NEGATIVE); WBC,URINE 0-4 /HPF (0-4)
[2023-04-01 22:50] LABS: BACTERIA,URINE FEW /HPF (Neg); RBC,URINE 0-2 /HPF (0-2)
[2023-04-01 23:44] LABS: ALANINE AMINOTRANSFERASE 35 U/L (12-78); ALBUMIN 3.8 G/DL (3.4-5.0); ALKALINE PHOSPHATASE 68 IU/L (46-116); ANION GAP 11 (8-16); ASPARTATE AMINO TRANSFERASE 26 U/L (10-37); BILIRUBIN,TOTAL 0.2 MG/DL (0.1-1.0); BLOOD UREA NITROGEN 17 MG/DL (7-18); BUN/CREATININE RATIO 19.5 (10.0-20.0); CALCIUM 8.7 MG/DL (8.5-10.1); CHLORIDE 105 MMOL/L (99-107); CREATININE 0.87 MG/DL (0.40-0.90); GLUCOSE 95 MG/DL (70-104); LIPASE 184 U/L (73-393); SODIUM 142 MMOL/L (135-145); TOTAL CARBON DIOXIDE 26.1 MMOL/L (24-32); TOTAL PROTEIN 7.8 G/DL (6.4-8.2); eCRCL 68 ML/MIN; eGFR 69 ML/MIN
[2023-04-01 23:47] LABS: BASOPHILS # (AUTO) 0.1 X10'3 (0-0.2); BASOPHILS % (AUTO) 0.9 % (0-1); EOSINOPHILS # (AUTO) 0.2 X10'3 (0-0.9); EOSINOPHILS % (AUTO) 3.1 % (0-6); HEMATOCRIT 42.7 % (35.0-45.0); HEMOGLOBIN 13.9 g/dl (12.0-16.0); LYMPHOCYTES # (AUTO) 2.4 X10'3 (1.1-4.8); LYMPHOCYTES % (AUTO) 29.4 % (21-51); MEAN CORPUSCULAR HEMOGLOBIN 29.8 PG (27.0-31.0); MEAN CORPUSCULAR HGB CONC 32.7 g/dL (33.0-36.5); MEAN CORPUSCULAR VOLUME 91.2 FL (78-98); MEAN PLATELET VOLUME 8.6 FL (7.4-10.4); MONOCYTES # (AUTO) 0.7 X10'3 (0-0.9); NEUTROPHILS # (AUTO) 4.7 X10'3 (1.8-7.7); NEUTROPHILS % (AUTO) 57.6 % (42-75); PLATELET COUNT 295 X10'3 (140-440); RED BLOOD COUNT 4.68 X10'6 (4.20-5.60); RED CELL DISTRIBUTION WIDTH 14.3 % (11.5-14.5); WHITE BLOOD COUNT 8.1 X10'3 (4.5-11.0)
[2023-04-02] MEDS ORDERED: thiamine 100mg/ml 2ml inj. IV ONE
[2023-04-02] MEDS ORDERED: ondansetron/PF 4mg/2ml inj IV ONE
[2023-04-02] MEDS ORDERED: normal saline 1000ML IV soln IVB ONE
[2023-04-02] MEDS ORDERED: iohexol 300mg/ml 100ml inj. ONE (01:00)
[2023-04-02 01:48] VITALS: BP 135/90; PULSE 66; RESP 16; O2SAT 99
== END 2023-04-02 04:21 | disposition left against medical advice (07) ==
LOC: ER 21:36
DX: R10.84 Generalized abdominal pain (principal); K59.00 Constipation, unspecified; I10 Essential (primary) hypertension; G89.29 Other chronic pain; E11.9 Type 2 diabetes mellitus without complications; F15.90 Other stimulant use, unspecified, uncomplicated; Z90.710 Acquired absence of both cervix and uterus; Z98.891 History of uterine scar from previous surgery; Z72.89 Other problems related to lifestyle; Z88.8 Allergy status to other drugs, medicaments and biological substances; Z79.82 Long term (current) use of aspirin; Z79.899 Other long term (current) drug therapy
CPT/HCPCS: 36415; 74177; 80053; 81001; 81025; 83690; 85025; 96361; 96374; 96375; 99285; J2405; J3411; J3490; J7030; Q9967

== ENCOUNTER 2023-04-21 19:40 | Emergency (ER) | payer MEDICAID ==
[~2023-04-21] VITALS: Ht 162.6 cm; Wt 104.8 kg
[2023-04-21 19:42] VITALS: BP 178/105; PULSE 84; RESP 16; TEMP 98.4; O2SAT 98
[2023-04-21] MEDS ORDERED: predniSONE 20 mg tablet PO ONE (20:50)
[2023-04-21] MEDS ORDERED: oxyCODONE/APAP 5-325mg tablet PO ONE (20:50)
[2023-04-21] MEDS ORDERED: PRED20TA PO (21:26)
== END 2023-04-21 21:33 | disposition home or self-care (01) ==
LOC: ER 19:41
DX: M25.531 Pain in right wrist (principal); I10 Essential (primary) hypertension; E11.9 Type 2 diabetes mellitus without complications; F31.9 Bipolar disorder, unspecified; F15.90 Other stimulant use, unspecified, uncomplicated; Z88.5 Allergy status to narcotic agent; Z79.82 Long term (current) use of aspirin; Z90.710 Acquired absence of both cervix and uterus
CPT/HCPCS: 99283; J7512

== ENCOUNTER 2024-04-13 17:39 | Emergency (ER) | payer MEDICAID, OTHER ==
[~2024-04-13] VITALS: Ht 162.6 cm; Wt 112.5 kg
[~2024-04-13 17:39] MED LIST changes: -ASPI81TA52 PO
[2024-04-13] MEDS: TETanus/Pertussis (Acell)/Diphther VAC/PF (Tdap-Adult) 0.5ml syringe IMVAC ONE (18:10)
[2024-04-13] MEDS: LIDOcaine 1% 30ml preserv. free vial IJ STA (18:11)
[2024-04-13] MEDS ORDERED: HYDR-3965 PO (18:19)
[2024-04-13] MEDS ORDERED: AMOX-580 PO (18:19)
[2024-04-13 18:40] VITALS: BP 100/67; PULSE 98; RESP 16; TEMP 98.7; O2SAT 98
[2024-04-15] MEDS ORDERED: LEVO-65 PO (18:03)
[2024-04-15] MEDS ORDERED: HYDR-3965 PO ×2 (18:19→18:25)
[2024-04-16] MEDS ORDERED: HYDR-3964 PO (15:19)
[2024-04-16] MEDS ORDERED: LISI30TA4 PO (15:19)
[2024-04-16] MEDS ORDERED: METO-395 PO (15:20)
[2024-04-16] MEDS ORDERED: BUPR-561 PO (15:24)
[2024-04-16] MEDS ORDERED: LURA40TA4 PO (15:24)
[2024-04-16] MEDS ORDERED: LORA-268 (15:24)
[2024-04-16] MEDS ORDERED: ROSU20TA73 PO (15:24)
[2024-04-18] MEDS ORDERED: HYDR-3972 PO (10:37)
[2024-04-18] MEDS ORDERED: DOXY-224 PO (10:37)
[2024-04-18] MEDS ORDERED: L. A1CAP9 PO (10:37)
== END 2024-04-13 18:43 | disposition home or self-care (01) ==
LOC: ER 17:39
DX: S61.031A Puncture wound without foreign body of right thumb without damage to nail, initial encounter (principal); I10 Essential (primary) hypertension; E11.9 Type 2 diabetes mellitus without complications; F32.A Depression, unspecified; F15.90 Other stimulant use, unspecified, uncomplicated; Z88.5 Allergy status to narcotic agent; Z79.899 Other long term (current) drug therapy; Z98.890 Other specified postprocedural states; Z90.710 Acquired absence of both cervix and uterus; W54.0XXA Bitten by dog, initial encounter; Y93.89 Activity, other specified; Y92.89 Other specified places as the place of occurrence of the external cause; Y99.8 Other external cause status
CPT/HCPCS: 29130; 73130; 90471; 90715; 99283; J7030; A6449

== ENCOUNTER 2025-02-14 10:50 | Emergency (ER) | payer OTHER, BC ==
[~2025-02-14 10:50] MED LIST changes: -ACET-1084 PO; -ATOR20TA66 PO; +BUPR-726 PO; +DOXY-224 PO; -FLUT16SP26; +HYDR-3965 PO; +HYDR-3972 PO; +L. A1CAP9 PO; -LISI20TA28 PO; +LISI30TA4 PO; +LORA-268; -LORA10TA7 PO; +LURA40TA4 PO; -METF-1203 PO; -MULT-227 PO; -PARO20TA6 PO; +ROSU20TA98 PO
[2025-02-14 11:15] VITALS: BP 130/57; PULSE 92; O2SAT 97
[2025-02-14] MEDS ORDERED: CYCL-394 PO (14:20)
[2025-02-14] MEDS ORDERED: LIDO-52 TOP (14:20)
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
[2025-02-14 14:37] VITALS: RESP 16
[2025-02-14] MEDS: cyclobenzaprine 10mg tablet PO ONE (14:37)
[2025-02-14] MEDS: HYDROcodone/acetaminophen 10/325mg tab PO ONE (14:37)
--- NOTE | 2025-02-14 14:39 | RADIOLOGY REPORT ---
[facility] INDICATION: Trauma COMPARISON: None TECHNIQUE: 6 views of the cervical spine were obtained. FINDINGS: Straightening of the cervical spine. The predental space is normal. Moderate multilevel degenerative disc disease of the cervical spine. No acute fracture, vertebral compression deformity or aggressive osseous lesions. The imaged lung apices are unremarkable. IMPRESSION: No acute fracture. Moderate multilevel degenerative disc disease of the cervical spine.
[2025-02-14 15:11] VITALS: TEMP 97.6
== END 2025-02-14 15:13 | disposition home or self-care (01) ==
LOC: ER 10:51
DX: S19.9XXA Unspecified injury of neck, initial encounter (principal); S09.90XA Unspecified injury of head, initial encounter; E11.9 Type 2 diabetes mellitus without complications; F31.9 Bipolar disorder, unspecified; I10 Essential (primary) hypertension; F41.9 Anxiety disorder, unspecified; Z88.5 Allergy status to narcotic agent; Z90.710 Acquired absence of both cervix and uterus; Z90.721 Acquired absence of ovaries, unilateral; V89.2XXA Person injured in unspecified motor-vehicle accident, traffic, initial encounter; Y93.89 Activity, other specified; Y92.410 Unspecified street and highway as the place of occurrence of the external cause; Y99.8 Other external cause status
CPT/HCPCS: 72040; 99283